=== PATIENT | male | born 1960 | race Caucasian/White ===

== ENCOUNTER → 2024-11-13 14:51 | Outpatient (CLI) | payer MEDICARE, MEDICAID, SELFPAY ==
--- NOTE | 2024-11-13 15:05 | DI.RAD.S_ITS ---
PROCEDURE: XR HIP W PEL IF DONE RT 2V INDICATIONS: pain in groin and hip TECHNIQUE: Two views of the right hip COMPARISON: None. FINDINGS: Bones: CAM configuration of the right femoral head neck junction would predispose to femoral acetabular impingement. Lateral plate and screws transfix an old solidly unified fracture of the proximal left femur which shows mild deformity. There is also moderate deformity left obturator ring where there is an old unified fracture. A single screw extends through the left SI joint ostensibly treated in old diastasis. SI joints show only mild degeneration. SI and hip joints: There is mild degenerative change of both SI and hip joints. Soft tissues: No soft tissue swelling, calcification or mass. IMPRESSION: Chronic findings that as described Dictated by: Eduardo Hays M.D. on 11/14/2024 at 9:25 Approved by: Eduardo Hays M.D. on 11/14/2024 at 9:27
== END ==
LOC: DI 15:02
PROVIDERS: Referring Provider Chiropractor; Visit Provider Chiropractor
DX: M16.0 Bilateral primary osteoarthritis of hip (principal); M47.818 Spondylosis without myelopathy or radiculopathy, sacral and sacrococcygeal region; Z87.81 Personal history of (healed) traumatic fracture
CPT/HCPCS: 73502